=== PATIENT | female | born 1990 | race Two or more races ===

== ENCOUNTER 2017-08-30 19:50 | Emergency (ER) | payer SELFPAY ==
[~2017-08-30] VITALS: Ht 152.4 cm; Wt 79.0 kg
[2017-08-30 20:25] VITALS: BP 102/40
[2017-08-30 20:49] LABS: CLARITY URINE CLOUDY (CLEAR); COLOR URINE YELLOW (YELLOW); KETONES URINE TRACE (NEGATIVE); LEUKOCYTE ESTERASE URINE 3+ (NEGATIVE); NITRITE URINE NEGATIVE (NEGATIVE); OCCULT BLOOD URINE NEGATIVE (NEGATIVE); PROTEIN URINE NEGATIVE (NEGATIVE); SPECIFIC GRAVITY URINE 1.026 (1.005-1.030)
== END 2017-08-31 | disposition left against medical advice (07) ==
LOC: ER 19:50
DX: Z53.21 Procedure and treatment not carried out due to patient leaving prior to being seen by health care provider (principal)
CPT/HCPCS: 81003; 81025; 99283